=== PATIENT | male | born 1940 | race Caucasian/White ===

== ENCOUNTER 2018-07-23 12:12 | Emergency (ER) | payer MEDICARE, OTHER ==
[~2018-07-23] VITALS: Ht 172.7 cm; Wt 64.4 kg
[~2018-07-23 12:12] MED LIST: Antivert25 MG PO; Cephalexin250 MG; GEMF600; Keflex500 MG PO; LOSA25 PO; [UNRECOGNIZED DRUG - REMARK]
[2018-07-23 12:51] LABS: BASOPHILS ABSOLUTE AUTO 0.04 K/mm3 (0.00-0.23); BASOPHILS PERCENT AUTO 1 % (0-2); EOSINOPHILS ABSOLUTE AUTO 0.47 K/mm3 (0.00-0.68); EOSINOPHILS PERCENT AUTO 8 % (0-6); Hematocrit 47.8 % (37.0-53.0); Hemoglobin 16.1 g/dL (13.5-17.5); IMMATURE GRAN ABSOLUTE AUTO 0.03 K/mm3 (0.00-0.10); IMMATURE GRAN PERCENT AUTO 1 % (0-1); LYMPHOCYTES ABSOLUTE AUTO 1.46 K/mm3 (0.84-5.20); LYMPHOCYTES PERCENT AUTO 23 % (21-46); MONOCYTES PERCENT AUTO 13 % (4-13); Mean Corpuscular HGB Conc 33.7 g/dL (31.5-36.5); Mean Corpuscular Volume 92 fL (80-100); Mean Platelet Volume 10.1 fL (9.1-12.4); NEUTROPHILS ABSOLUTE AUTO 3.44 K/mm3 (1.96-9.15); NEUTROPHILS PERCENT AUTO 55 % (41-73); Platelet Count 157 K/mm3 (150-400); RDW Coefficient Variation 13.2 % (11.7-14.2); RDW Standard Deviation 44.9 fL (35.1-46.3); Red Blood Cell Count 5.19 M/mm3 (4.30-5.90); White Blood Cell Count 6.24 K/mm3 (4.00-11.30)
[2018-07-23 13:10] LABS: Alanine Aminotransfer (ALT/SGP 19 U/L (12-78); Albumin, Blood 3.9 g/dL (3.4-5.0); Alk Phos 91 U/L (50-136); Anion Gap 4 mmol/L (6-16); Aspartate Aminotrans (AST/SGOT 17 U/L (12-37); Bilirubin, Total 0.8 mg/dL (0.1-1.0); Blood Urea Nitrogen 8 mg/dL (8-24); Bun/Creatinine Ratio 9.7 (12.0-20.0); CO2, Blood 31 mmol/L (21-32); Calcium, Blood 9.7 mg/dL (8.5-10.1); Chloride, Blood 104 mmol/L (98-108); Creatinine, Blood 0.83 mg/dL (0.60-1.20); Globulin, Blood 3.8 g/dL (2.2-4.0); Glomerular Filtration Rate >60 (60-); Glucose, Blood 82 mg/dL (70-99); Potassium, Blood 3.9 mmol/L (3.5-5.5); Sodium, Blood 139 mmol/L (136-145); Total Protein, Blood 7.7 g/dL (6.4-8.2); Troponin I <0.015 ng/mL (0.000-0.040)
[2018-07-23] MEDS ORDERED: Triamcinolone A15 G3 TOP (13:57)
[2018-07-23] MEDS ORDERED: DOXE10 PO (13:57)
[2018-07-23] MEDS ORDERED: ALPR.5 PO (13:57)
[2018-07-23] MEDS ORDERED: MECL12.5 PO (14:42)
== END 2018-07-23 15:08 | disposition home or self-care (01) ==
LOC: ER 12:12
PROVIDERS: Physician Assistant
DX: I10 Essential (primary) hypertension (principal); Z88.8 Allergy status to other drugs, medicaments and biological substances; Z79.899 Other long term (current) drug therapy
CPT/HCPCS: 36415; 71046; 80053; 84484; 85025; 93005; 93010; 99284-25

== ENCOUNTER 2018-07-25 10:54 | Emergency (ER) | payer MEDICARE, OTHER ==
[~2018-07-25] VITALS: Ht 170.2 cm; Wt 64.0 kg
[~2018-07-25 10:54] MED LIST changes: +ALPR.5 PO; +DOXE10 PO; +MECL12.5 PO; +Triamcinolone A15 G3 TOP
[2018-07-25 11:35] LABS: BASOPHILS ABSOLUTE AUTO 0.03 K/mm3 (0.00-0.23); BASOPHILS PERCENT AUTO 1 % (0-2); EOSINOPHILS ABSOLUTE AUTO 0.47 K/mm3 (0.00-0.68); EOSINOPHILS PERCENT AUTO 8 % (0-6); Hematocrit 49.4 % (37.0-53.0); Hemoglobin 16.7 g/dL (13.5-17.5); IMMATURE GRAN ABSOLUTE AUTO 0.02 K/mm3 (0.00-0.10); IMMATURE GRAN PERCENT AUTO 0 % (0-1); LYMPHOCYTES ABSOLUTE AUTO 1.35 K/mm3 (0.84-5.20); LYMPHOCYTES PERCENT AUTO 22 % (21-46); MONOCYTES ABSOLUTE AUTO 0.71 K/mm3 (0.16-1.47); MONOCYTES PERCENT AUTO 11 % (4-13); Mean Corpuscular HGB 30.7 pg (26.0-34.0); Mean Corpuscular HGB Conc 33.8 g/dL (31.5-36.5); Mean Corpuscular Volume 91 fL (80-100); Mean Platelet Volume 10.2 fL (9.1-12.4); NEUTROPHILS ABSOLUTE AUTO 3.66 K/mm3 (1.96-9.15); NEUTROPHILS PERCENT AUTO 59 % (41-73); Platelet Count 154 K/mm3 (150-400); RDW Coefficient Variation 13.2 % (11.7-14.2); RDW Standard Deviation 43.7 fL (35.1-46.3); Red Blood Cell Count 5.44 M/mm3 (4.30-5.90); White Blood Cell Count 6.24 K/mm3 (4.00-11.30)
[2018-07-25 11:54] LABS: Alanine Aminotransfer (ALT/SGP 23 U/L (12-78); Albumin/Globulin Ratio 1.1 (0.8-1.8); Alk Phos 93 U/L (50-136); Anion Gap 7 mmol/L (6-16); Aspartate Aminotrans (AST/SGOT 18 U/L (12-37); Bilirubin, Total 0.7 mg/dL (0.1-1.0); Blood Urea Nitrogen 7 mg/dL (8-24); Bun/Creatinine Ratio 7.9 (12.0-20.0); CO2, Blood 30 mmol/L (21-32); Calcium, Blood 9.3 mg/dL (8.5-10.1); Chloride, Blood 102 mmol/L (98-108); Creatinine, Blood 0.88 mg/dL (0.60-1.20); Globulin, Blood 3.6 g/dL (2.2-4.0); Glomerular Filtration Rate >60 (60-); Glucose, Blood 89 mg/dL (70-99); Potassium, Blood 3.5 mmol/L (3.5-5.5); Sodium, Blood 139 mmol/L (136-145); Total Protein, Blood 7.6 g/dL (6.4-8.2); Troponin I <0.015 ng/mL (0.000-0.040)
== END 2018-07-25 12:57 | disposition home or self-care (01) ==
LOC: ER 10:54
PROVIDERS: Emergency Medicine
DX: I10 Essential (primary) hypertension (principal); Z79.899 Other long term (current) drug therapy
CPT/HCPCS: 36415; 71046; 80053; 84484; 85025; 93005; 93010; 99284-25

== ENCOUNTER 2020-08-11 21:00 | Observation (INO) | payer MEDICARE ==
[~2020-08-11] VITALS: Ht 167.6 cm; Wt 58.0 kg
[~2020-08-11 21:00] MED LIST changes: -ALPR.5 PO; +HYDR1TAB94 PO
[2020-08-11 23:12] LABS: PCO2 Arterial 36.5 mmHg (35-45); PO2 Arterial 136 mmHg (80-100); pH Blood Arterial 7.46 (7.35-7.45)
--- NOTE | 2020-08-12 02:46 | NUR ---
0149 PT ARRIVED TO ROOM FROM ER IN STABLE CONDITION. PT REPORTS SOB THAT INCREASES WITH EXERTION. ON 6L O2 NC AT 90%. GETS VERY ANXIOUS WITH ANY SOB AND STARTS TO HYPERVENTILATE. REPORTS PAIN WITH MOVEMENT IN R ELBOW, WEARING ARM SLING AT THIS TIME. NO OTHER APPARENT SIGNS OF DISTRESS. CALL LIGHT IS IN REACH.
--- NOTE | 2020-08-12 06:09 | NUR ---
0400 PT LYING IN BED, EYES CLOSED, APPEARS TO BE RESTING. WAKES EASILY TO VERBAL STIMULI. NO APPARENT SIGNS OF DISTRESS. CALL LIGHT IS IN REACH.
--- NOTE | 2020-08-12 06:09 | NUR ---
PT IS AAO X 4, ON 6L O2 NC, SOB THAT INCREASES WITH EXERTION. REPORTS PAIN WITH MOVEMENT IN R ELBOW, HAS EPICONDYLITIS. ARM SLING IN PLACE. ANXIETY WITH ANY SOB, CALMS WITH COACHING ON BREATHING.
--- NOTE | 2020-08-12 06:11 | NUR ---
PT LYING IN BED, EYES CLOSED, APPEARS TO BE RESTING. BREATHING IS EVEN, UNLABORED. NO APPARENT SIGNS OF DISTRESS. CALL LIGHT IS IN REACH. NO OTHER CHANGES THIS SHIFT.
--- NOTE | 2020-08-12 14:00 | NUR ---
SPOKE WITH PT'S DAUGHTER DEVAUGHN ([phone]), GAVE HER UPDATE ON PATIENT'S STATUS AND PLAN GOING FORWARD: PER Dee Dee CARD RN CM PT WILL HAVE HOME O2 EVAL TOMORROW THEN D/C HOME WITH [facility] TO FOLLOW.
--- NOTE | 2020-08-12 16:43 | NUR ---
SPOKE TO DR. SOLOMON REGARDING COMFORT CARE ORDER. HE STATED OK TO MAKE PT COMFORT CARE, BUT TO LEAVE HIS MEDICATIONS THE SAME. ORDER PLACED.
--- NOTE | 2020-08-12 18:27 | NUR ---
SHIFT SUMMARY: TRANSITIONED TO COMFORT CARE TODAY, AT BEDSIDE. ANXIOUS, SEVERE GR. STARTED ON DILAUDID 1 MG PO, WHICH HE STATED WORKED WELL FOR HIS R ELBOW PAIN BUT STILL HAS INTERMITTENT AIR HUNGER. DAILY XANAX DOSE GIVEN THIS MORNING GAVE EXCELLENT RELIEF FROM ANXIETY AND AIR HUNGER. EATING SMALL AMOUNTS OF MEALS D/T DYSPNEA. USING BSC HE GETS TOO SOB TO WALK TO BR. IS LOOKING FORWARD TO D/C HOME TOMORROW.
--- NOTE | 2020-08-13 04:13 | NUR ---
SHIFT SUMMARY S/O HYPOXIA, A/O, VSS, TOLERATING SMALL AMTS OF PO INTAKE, SWALLOWS PILLS WHOLE, @ BEDSIDE, STABLE ON 7L O2, DENIES PAIN T/O SHIFT, MODERATE ANXIETY WHEN WOKE UP BUT SETTLES EASILY W/ ENCOURAGEMENT. NO ACUTE EVENTS THIS SHIFT. CALL LIGHT IN REACH, WILL CONTINUE TO MONITOR AND REPORT TO ONCOMING DAY RN.
[2020-08-13] MEDS ORDERED: SENN187 PO (11:29)
--- NOTE | 2020-08-13 16:02 | NUR ---
PATIENT DISCHARGED TO HOME WITH HOSPICE TO FOLLOW, WILL SEE PT AT HOME ON 08/17/20. HAND WRITTEN RX FOR DILAUDID GIVEN TO PT'S TO FILL. PT'S VERBALIZED UNDERSTANDING OF D/C INSTRUCTIONS. O2 TANK FOR RIDE HOME DELIVERED PT IN ROOM, HOME O2 BEING DELIVERED AT 1545. PT OFF UNIT VIA W/C WITH STILL RUNNER, O2, AND AT 1600. PHONE CALL MADE TO PT'S DAUGHTER DEVAUGHN TO GIVE HER UPDATE ON D/C AND PLAN FOR HOSPICE.
== END 2020-08-13 15:58 | disposition hospice, home (50) ==
LOC: ER 21:00 → MEDS 21:01 → ERHOLD 21:01 → MEDS 08-12 01:33
PROVIDERS: Emergency Medicine; ADMIT Internal Medicine
DX: J96.01 Acute respiratory failure with hypoxia (principal); J44.9 Chronic obstructive pulmonary disease, unspecified; E84.9 Cystic fibrosis, unspecified; E43 Unspecified severe protein-calorie malnutrition; F41.9 Anxiety disorder, unspecified; I10 Essential (primary) hypertension; M92.522 Juvenile osteochondrosis of tibia tubercle, left leg; J84.10 Pulmonary fibrosis, unspecified; N39.0 Urinary tract infection, site not specified; N41.9 Inflammatory disease of prostate, unspecified; Z66 Do not resuscitate; Z99.81 Dependence on supplemental oxygen
CPT/HCPCS: 36600; 71045; 73080; 82803; 93005; 93010; 94760; 94761; 99285-25; A9270; G0378; J7512

== ENCOUNTER 2020-08-17 04:00 | Emergency (ER) | payer MEDICARE ==
[~2020-08-17] VITALS: Ht 172.7 cm; Wt 57.1 kg
[~2020-08-17 04:00] MED LIST changes: +SENN187 PO
[2020-08-17 04:28] LABS: PCO2 Arterial 48.1 mmHg (35-45); PO2 Arterial 80.9 mmHg (80-100); pH Blood Arterial 7.38 (7.35-7.45)
[2020-08-17 04:41] LABS: BASOPHILS ABSOLUTE AUTO 0.05 K/mm3 (0.00-0.23); BASOPHILS PERCENT AUTO 0 % (0-2); EOSINOPHILS ABSOLUTE AUTO 0.23 K/mm3 (0.00-0.68); EOSINOPHILS PERCENT AUTO 2 % (0-6); Hematocrit 42.9 % (37.0-53.0); Hemoglobin 14.4 g/dL (13.5-17.5); IMMATURE GRAN ABSOLUTE AUTO 0.14 K/mm3 (0.00-0.10); IMMATURE GRAN PERCENT AUTO 1 % (0-1); LYMPHOCYTES ABSOLUTE AUTO 1.03 K/mm3 (0.84-5.20); LYMPHOCYTES PERCENT AUTO 8 % (21-46); MONOCYTES ABSOLUTE AUTO 1.52 K/mm3 (0.16-1.47); MONOCYTES PERCENT AUTO 11 % (4-13); Mean Corpuscular HGB 30.4 pg (26.0-34.0); Mean Corpuscular HGB Conc 33.6 g/dL (31.5-36.5); Mean Corpuscular Volume 91 fL (80-100); Mean Platelet Volume 10.8 fL (9.1-12.4); NEUTROPHILS PERCENT AUTO 78 % (41-73); Platelet Count 221 K/mm3 (150-400); RDW Coefficient Variation 13.1 % (11.7-14.2); RDW Standard Deviation 43.9 fL (35.1-46.3); Red Blood Cell Count 4.73 M/mm3 (4.30-5.90); White Blood Cell Count 13.47 K/mm3 (4.00-11.30)
[2020-08-17 05:00] LABS: Alanine Aminotransfer (ALT/SGP 20 U/L (12-78); Albumin, Blood 2.5 g/dL (3.4-5.0); Albumin/Globulin Ratio 0.6 (0.8-1.8); Alk Phos 99 U/L (50-136); Anion Gap 9 mmol/L (6-16); Aspartate Aminotrans (AST/SGOT 25 U/L (12-37); Bilirubin, Total 0.8 mg/dL (0.1-1.0); Blood Urea Nitrogen 12 mg/dL (8-24); Bun/Creatinine Ratio 19.8 (12.0-20.0); CO2, Blood 27 mmol/L (21-32); Calcium, Blood 8.9 mg/dL (8.5-10.1); Chloride, Blood 99 mmol/L (98-108); Creatinine, Blood 0.61 mg/dL (0.60-1.20); Globulin, Blood 4.1 g/dL (2.2-4.0); Glomerular Filtration Rate >60 (60-); Glucose, Blood 119 mg/dL (70-99); Potassium, Blood 4.3 mmol/L (3.5-5.5); Sodium, Blood 135 mmol/L (136-145); Total Protein, Blood 6.6 g/dL (6.4-8.2); Troponin I 0.052 ng/mL (0.000-0.040)
[2020-08-17 05:07] LABS: SARS-Cov-2 (COVID-19) PCR, MMC NEGATIVE (NEGATIVE)
--- NOTE | 2020-08-17 09:21 | NUR ---
Comfort Care Visit Pt to the ED to focus on comfort. Family and Pt has elected comfort care. Pt resting on gurny upon arrival. Pt's spouse Austyn and daughter Liliana at bedside. Pt actively dying and passes away moments after this RNs arrival. Offered condolences and emotional support to family. Called [employer] per request of family. Maximilian offers spiritual support. home discussed with family choosing [facility]. Family appears to be grieving appropriately. Palliative Care will remain available.
--- NOTE | 2020-08-17 10:10 | NUR ---
Patient's family are bedside and grieving appropriately. I provide emotional/grief support and prayer. I acquire water for the family and usher them to the consult rm to wait for the transport for [facility] to retrieve the body. After several minutes in the consult rm and some pastoral encouragement given family decides not to wait for the home transport to arrive. I assist family find their way to the parking lot. They show signs of being comforted.
[2020-08-17] MEDS ORDERED: Prednisone10 MG PO (12:23)
[2020-08-17] MEDS ORDERED: HYDMOR2 PO (12:23)
[2020-08-17] MEDS ORDERED: Lisinopril2.5 MG PO (12:26)
[2020-08-17] MEDS ORDERED: ALPR.25 PO (12:26)
== END 2020-08-17 13:32 ==
LOC: ER 04:00 → MEDS 04:01 → ER 13:32
PROVIDERS: Emergency Medicine
DX: J96.21 Acute and chronic respiratory failure with hypoxia (principal); J84.10 Pulmonary fibrosis, unspecified; Z20.822 Contact with and (suspected) exposure to COVID-19
CPT/HCPCS: 36600; 71045; 80053; 82803; 83605; 83880; 84145; 84484; 85025; 93005; 93010; 94644; 94660; 96374; 96375; 96376; 99285-25; J2060; J2270; J7030; U0004